=== PATIENT | female | born 1975 | race Caucasian/White ===

== ENCOUNTER 2016-09-18 01:02 | Emergency (ER) | payer MEDICAID ==
[2016-09-18 01:10] VITALS: RESP 16
[2016-09-18] MEDS ORDERED: NITROFURANTOIN MACROBID 100 MG CAP PO ONE (01:19)
[2016-09-18] MEDS ORDERED: PHENAZOPYRIDINE HCL 200 MG TAB ONE (01:19)
[2016-09-18] MEDS ORDERED: PHENAZOPYRIDINE HCL 200 MG TAB PO ONE (01:19)
[2016-09-18] MEDS ORDERED: IBUPROFEN 200 MG TAB PO ONE ×2 (01:22→01:26)
[2016-09-18] MEDS ORDERED: ACETAMINOPHEN 500 MG TAB ONE (01:22)
--- NOTE | 2016-09-18 01:23 | EDPHY ---
H & P Stated Complaint: c/o difficulty urinating earlier in [place], then bloody urine and burning Time Seen by Provider: 09/18/16 01:17 HPI/ROS: HPI The patient presents with urinary frequency, urgency, hesitancy which began at about 9:30 p.m. tonight fairly suddenly. She did notice a small amount of blood in her urine as well. She is having suprapubic pain. She has no prior history of urinary tract infection. She does not have any flank pain, vomiting , fevers or chills.. REVIEW OF SYSTEMS Constitutional: No fever, no chills. Eyes: No discharge. ENT: No sore throat. Cardiovascular: No chest pain, no palpitations. Respiratory: No cough, no shortness of breath. Gastrointestinal: No abdominal pain, no vomiting. Genitourinary: + hematuria. Musculoskeletal: No back pain. Skin: No rashes. Neurological: No headache. PMHx: Healthy Soc Hx: Housed PHYSICAL General Appearance: Alert, uncomfortable appearing, pacing in the room Eyes: Pupils equal and round no pallor or injection ENT, Mouth: Mucous membranes moist Respiratory: There are no retractions, lungs are clear to auscultation Cardiovascular: Regular rate and rhythm Gastrointestinal: Abdomen is soft and with mild epigastric tenderness Neurological: A&O, moves all extremities Skin: Warm and dry, no rashes Musculoskeletal: Neck is supple non tender Extremities: symmetrical, full range of motion Psychiatric: Patient is oriented X 3, there is no agitation Source: Patient Exam Limitations: No limitations - Medical/Surgical History Hx Asthma: No Hx Chronic Respiratory Disease: No Hx Diabetes: No Hx Cardiac Disease: No Hx Renal Disease: No Hx Cirrhosis: No Hx Alcoholism: No Hx HIV/AIDS: No Hx Splenectomy or Spleen Trauma: No Other PMH: OVARIAN CYST - Social History Smoking Status: Never smoked Constitutional: Initial Vital Signs Heart Rate 76 09/18/16 01:07 Respiratory Rate 16 09/18/16 01:07 Blood Pressure 95/69 L 09/18/16 01:07 O2 Sat (%) 96 09/18/16 01:07 O2 Delivery Mode Room Air Allergies/Adverse Reactions: No Known Allergies Allergy (Verified 09/18/16 01:10) Home Medications: Medication Instructions Recorded Ibuprofen 200 mg PO Q4 03/24/14 Zolpidem Tartrate [Ambien] 5 mg PO HS 03/24/14 Nitrofurantoin Monohyd/M-Cryst 100 mg PO BID #14 capsule 09/18/16 [Macrobid 100 mg Capsule] Phenazopyridine HCl [Pyridium] 200 mg PO TID #6 tab 09/18/16 Medical Decision Making ED Course/Re-evaluation: UA shows evidence of UTI. She is treated here with Pyridium and Macrobid. I will give her prescriptions for both of these. She will be discharged from the emergency room. Differential Diagnosis: This is a 41-year-old female who presents from home with suprapubic abdominal pain, irritative voiding symptoms and gross hematuria. Differential diagnosis includes cystitis, pyelonephritis, less likely renal colic. - Data Points Laboratory Results: 09/18/16 09/18/16 01:18 01:18 Urine Color RED Urine Appearance MODERATELY TURBID Urine pH 6.0 (5.0-7.5) Ur Specific [place] 1.006 (1.002-1.030) Urine Protein 2+ H (NEGATIVE) Urine Ketones NEGATIVE (NEGATIVE) Urine Blood 3+ H (NEGATIVE) Urine Nitrate NEGATIVE (NEGATIVE) Urine Bilirubin NEGATIVE (NEGATIVE) Urine Urobilinogen NEGATIVE EU EU (0.2-1.0) Ur Leukocyte Esterase 3+ H (NEGATIVE) Urine RBC 50-182 /hpf H /hpf (0-3) Urine WBC 50-182 /hpf H /hpf (0-3) Ur Epithelial Cells TRACE /lpf /lpf (NONE-1+) Urine Bacteria 3+ /hpf H /hpf (NONE SEEN) Urine Glucose NEGATIVE (NEGATIVE) Urine Test NEGATIVE Medications Given: Discontinued Medications Acetaminophen (Tylenol) 1,000 mg PO EDNOW ONE Stop: 09/18/16 01:27 Last Admin: 09/18/16 01:27 Dose: 1,000 mg Ibuprofen (Motrin) 400 mg PO EDNOW ONE Stop: 09/18/16 01:27 Last Admin: 09/18/16 01:28 Dose: 400 mg Nitrofurantoin Macrocrystals (Macrobid) 100 mg PO EDNOW ONE PRN Reason: Protocol Stop: 09/18/16 01:20 Last Admin: 09/18/16 01:27 Dose: 100 mg Phenazopyridine HCl (Pyridium) 200 mg PO EDNOW ONE Stop: 09/18/16 01:20 Last Admin: 09/18/16 01:27 Dose: 200 mg Departure - Departure Disposition: Home, Routine, Self-Care Clinical Impression: Urinary tract infection Qualifiers: Urinary tract infection type: acute cystitis Hematuria presence: with hematuria Qualified Code(s): N30.01 - Acute cystitis with hematuria Condition: Good Instructions: Urinary Tract Infection in Women (ED) Referrals: Marina Gresham MD [Primary Care Provider] - As per Instructions Prescriptions: Nitrofurantoin Monohyd/M-Cryst [Macrobid 100 mg Capsule] 100 mg PO BID #14 capsule Phenazopyridine HCl [Pyridium] 200 mg PO TID #6 tab
[2016-09-18] MEDS ORDERED: ACETAMINOPHEN 500 MG TAB PO ONE (01:26)
[2016-09-18 01:27] LABS: COLOR RED; LEUKOCYTE ESTERASE,URINE 3+ (NEGATIVE); NITRITE,URINE NEGATIVE (NEGATIVE)
[2016-09-18 01:32] LABS: BACTERIA 3+ /hpf (NONE SEEN); RBC,URINE 50-182 /hpf (0-3); WBC,URINE 50-182 /hpf (0-3)
[2016-09-18 01:48] VITALS: BP 113/62; PULSE 70; TEMP 98.1; O2SAT 95
== END 2016-09-18 01:48 | disposition home or self-care (01) ==
DX: N30.01 Acute cystitis with hematuria (principal); B96.20 Unspecified Escherichia coli [E. coli] as the cause of diseases classified elsewhere

== ENCOUNTER 2016-11-22 18:29 | Emergency (ER) | payer MEDICAID ==
[2016-11-22 18:38] VITALS: PULSE 80; O2SAT 97
--- NOTE | 2016-11-22 19:08 | EDPHY ---
H & P Stated Complaint: pain, urgency, frequency, and hematuria. Time Seen by Provider: 11/22/16 18:43 HPI/ROS: Chief Complaint: Pain with urination, hematuria HPI: 41-year-old female started having urinary urgency frequency and hematuria about 4 o'clock this afternoon. Patient has a history of urinary tract infection several months ago and this feels the same. No nausea or vomiting. Did start developing some chills tonight. Has some low pain but worse pain with urinating. No back pain. ROS: 10 point Review of Systems is negative except as noted in the HPI. PMH: None Medications: None Allergies: No known drug allergies Social History: No smoking, no alcohol, no recreational drug use Family History: non-contributory Physical Exam: Gen: Awake, Alert, No Distress HEENT: Nose: no rhinorrhea Eyes: PERRLA, EOMI Mouth: Moist mucosa Neck: Supple, no JVD Chest: nontender, lungs clear to auscultation Heart: S1, S2 normal, no murmur Abd: Soft, mild tenderness with palpation of the bladder, no guarding Back: no CVA tenderness, no midline tenderness Ext: no edema, non-tender Skin: no rash Neuro: CN II-XII intact, Sensation grossly intact, Strength 5/5 in bilateral upper and lower extremities - Personal History LMP (Females 10-55): 22-28 Days Ago Current Tetanus Diphtheria and Acellular Pertussis (TDAP): Yes - Medical/Surgical History Hx Asthma: No Hx Chronic Respiratory Disease: No Hx Diabetes: No Hx Cardiac Disease: No Hx Renal Disease: No Hx Cirrhosis: No Hx Alcoholism: No Hx HIV/AIDS: No Hx Splenectomy or Spleen Trauma: No Other PMH: OVARIAN CYST - Social History Smoking Status: Never smoked Constitutional: Initial Vital Signs Temperature (C) 36.7 C 11/22/16 18:35 Heart Rate 80 11/22/16 18:35 Respiratory Rate 16 11/22/16 18:35 Blood Pressure 144/82 H 11/22/16 18:35 O2 Sat (%) 97 11/22/16 18:35 O2 Delivery Mode Room Air Allergies/Adverse Reactions: No Known Allergies Allergy (Verified 09/18/16 01:10) Home Medications: Medication Instructions Recorded Ibuprofen 200 mg PO Q4 03/24/14 Zolpidem Tartrate [Ambien] 5 mg PO HS 03/24/14 Nitrofurantoin Monohyd/M-Cryst 100 mg PO BID #10 capsule 11/22/16 [Macrobid 100 mg Capsule] Phenazopyridine HCl [Pyridium] 200 mg PO TID #6 tab 11/22/16 Medical Decision Making ED Course/Re-evaluation: Urinalysis consistent with UTI. Will start on Macrobid. Patient to follow up with primary care physician about a week. - Data Points Laboratory Results: 11/22/16 11/22/16 18:40 18:40 Urine Color RED Urine Appearance MODERATELY TURBID Urine pH 7.0 (5.0-7.5) Ur Specific [place] 1.015 (1.002-1.030) Urine Protein 2+ H (NEGATIVE) Urine Ketones NEGATIVE (NEGATIVE) Urine Blood 3+ H (NEGATIVE) Urine Nitrate NEGATIVE (NEGATIVE) Urine Bilirubin NEGATIVE (NEGATIVE) Urine Urobilinogen NEGATIVE EU EU (0.2-1.0) Ur Leukocyte Esterase 3+ H (NEGATIVE) Urine RBC 50-182 /hpf H /hpf (0-3) Urine WBC 50-182 /hpf H /hpf (0-3) Ur Epithelial Cells TRACE /lpf /lpf (NONE-1+) Urine Glucose NEGATIVE (NEGATIVE) Urine Test NEGATIVE Departure - Departure Disposition: Home, Routine, Self-Care Clinical Impression: Urinary tract infection Condition: Good Instructions: Urinary Tract Infection in Women (ED) Additional Instructions: Please take your full course of antibiotics. Follow up with primary care physician in 5-7 days if symptoms are not improving. Return to the emergency depart for increasing pain, fevers, chills, nausea, vomiting, or any other concerns. Referrals: Marina Gresham MD [Primary Care Provider] - As per Instructions Prescriptions: Nitrofurantoin Monohyd/M-Cryst [Macrobid 100 mg Capsule] 100 mg PO BID #10 capsule Phenazopyridine HCl [Pyridium] 200 mg PO TID #6 tab
[2016-11-22 19:12] LABS: COLOR RED; LEUKOCYTE ESTERASE,URINE 3+ (NEGATIVE); NITRITE,URINE NEGATIVE (NEGATIVE)
[2016-11-22 19:15] LABS: RBC,URINE 50-182 /hpf (0-3); WBC,URINE 50-182 /hpf (0-3)
[2016-11-22] MEDS ORDERED: PHENAZOPYRIDINE HCL 200 MG TAB PO ONE (20:03)
[2016-11-22] MEDS ORDERED: NITROFURANTOIN 100MG PREPACK#2 BTL TAKEHOME ONE (20:03)
[2016-11-22 20:36] VITALS: BP 142/81; RESP 14; TEMP 97.9
== END 2016-11-22 20:37 | disposition home or self-care (01) ==
DX: N39.0 Urinary tract infection, site not specified (principal)

== ENCOUNTER 2018-09-02 18:35 | Emergency (ER) | payer SELFPAY ==
[2018-09-02] MEDS ORDERED: NS 1,000 ML IV ONE (18:58)
--- NOTE | 2018-09-02 19:06 | EDPHY ---
H & P Stated Complaint: RLQ ABD PAIN SEEN AT FRIDAY/TX FOR UTI HX OF R OVARIAN CYST Time Seen by Provider: 09/02/18 18:55 HPI/ROS: CHIEF COMPLAINT: Right lower quadrant abdominal pain x3 days HISTORY OF PRESENT ILLNESS: 43-year-old female complaining of right lower quadrant abdominal pain for 3 days. She believes it is secondary to an ovarian cyst. Denies nausea or vomiting. Denies back or flank pain. Denies abnormal vaginal bleeding or discharge. No history of abdominal surgery. Last oral intake 4:00 p.m. Today consisting of soup. REVIEW OF SYSTEMS: 10 systems reviewed and negative with the exception of the elements mentioned in the history of present illness PAST MEDICAL & SURGICAL HISTORY: History of ovarian cyst SOCIAL HISTORY:Nonsmoker PHYSICAL EXAM (Prior to examination, patient consented to physical exam, hands were washed and my usual and customary physical exam procedures followed) 1) GENERAL: Well-developed, well-nourished, alert and oriented. Crying, appears uncomfortable 2) HEAD: Normocephalic, atraumatic 3) HEENT: Pupils equal, round, reactive to light bilaterally. Sclera anicteric. 4) NECK: Full range of motion, no meningeal signs. 5) LUNGS: Clear auscultation bilaterally, no wheezes, no rhonchi, no retractions. 6) HEART: Regular rate and rhythm, no murmur, no heave, no gallop. 7) ABDOMEN: Guarding right lower quadrant, tender to palpation right lower quadrant. Negative Croft's, negative Rovsing's, negative peritoneal sign, 8) MUSCULOSKELETAL: Moving all extremities, no focal areas of tenderness, no obvious trauma. No peripheral edema or discoloration. 9) BACK: No CVA tenderness, no midline vertebral tenderness, no fluctuance, no step-off, no obvious trauma, no visual or palpable abnormality. 10) SKIN: No rash, no petechiae. 11) Psychiatric: Patient is oriented X 3, there is no agitation. DIFFERENTIAL DIAGNOSIS: My differential diagnosis includes, but is not limited to, acute appendicitis, acute cholecystitis, bowel obstruction, acute pancreatitis, ovarian torsion, ectopic , gastritis and urinary tract infection. The patient understands that this diagnosis is provisional and can never be 100% accurate. This is a partial list of diagnoses considered. These considerations are based on history, physical exam, past history and reassessment. - Personal History LMP (Females 10-55): Now Current Tetanus Diphtheria and Acellular Pertussis (TDAP): Unsure - Medical/Surgical History Hx Asthma: No Hx Chronic Respiratory Disease: No Hx Diabetes: No Hx Cardiac Disease: No Hx Renal Disease: No Hx Cirrhosis: No Hx Alcoholism: No Hx HIV/AIDS: No Hx Splenectomy or Spleen Trauma: No Other PMH: OVARIAN CYST - Social History Smoking Status: Never smoked Constitutional: Initial Vital Signs Temperature (C) 36.9 C 09/02/18 18:46 Heart Rate 77 09/02/18 18:46 Respiratory Rate 17 09/02/18 18:46 Blood Pressure 160/94 H 09/02/18 18:46 O2 Sat (%) 99 09/02/18 18:46 O2 Delivery Mode Room Air Allergies/Adverse Reactions: No Known Allergies Allergy (Verified 09/02/18 18:45) Home Medications: Medication Instructions Recorded Ibuprofen 200 mg PO Q4 03/24/14 Zolpidem Tartrate [Ambien] 5 mg PO HS 03/24/14 Nitrofurantoin Monohyd/M-Cryst 100 mg PO BID #10 capsule 11/22/16 [Macrobid 100 mg Capsule] Phenazopyridine HCl [Pyridium] 200 mg PO TID #6 tab 11/22/16 Docusate Sodium [Colace] 100 mg PO BID #6 cap 09/02/18 Medical Decision Making - Diagnostics Imaging Results: Imaging Impressions Abdomen Ultrasound 09/02/18 19:04 Impression: No indirect sonographic evidence for appendicitis. The study is less than optimal due to the patient's body habitus. Results called to MILTON New at 20:20 p.m. Pelvic/Renal Ultrasound 09/02/18 19:04 Impression: 1. Possible adenomyosis. 2. Normal ovaries without cyst formation. Results called to MILTON New at 20:[address] 09/02/18 20:22 Impression: 1.Normal appendix. 2. Prominent fecal material in the proximal half of the colon. Results discussed with MILTON New at 9:45 PM. General information for patients regarding this examination can be found at [email or web address]. If you have questions or comments about this report, please contact me at (hospital) or [phone] (cell). Images reviewed myself ED Course/Re-evaluation: 8:20 p.m.: Ultrasound interpreted by staff radiologist shows normal appearing ovaries, nonvisualized appendix. Recommended CT imaging due to her continued focal right lower quadrant pain. 9:50 p.m.: Re-evaluation. Discussed with patient her imaging results showing normal appearing appendix. She is noted to have prominent fecal material which may be contributing to her pain. At this time doubt acute surgical abdominal pathology. I re-examined her and she is asymptomatic, she has no complaints of abdominal pain, I am unable to elicit abdominal pain on exam. She feels comfortable being discharged. Patient feels comfortable being discharged. All questions and concerns addressed by myself. Patient given my usual and customary discharge precautions and instructions regarding their clinical impression. Care of patient under supervision of secondary supervising physician Dr Amaral with whom I discussed case. - Data Points Laboratory Results: Laboratory Results 09/02/18 18:00 09/02/18 18:00 09/02/18 09/02/18 09/02/18 18:00 18:00 18:00 WBC RBC Hgb Hct MCV MCH MCHC RDW Plt Count MPV Neut % (Auto) Lymph % (Auto) [place] % (Auto) Eos % (Auto) Baso % (Auto) Nucleat RBC Rel Count Absolute Neuts (auto) Absolute Lymphs (auto) Absolute Monos (auto) Absolute Eos (auto) Absolute Basos (auto) Absolute Nucleated RBC Immature Gran % Immature Gran # Sodium 136 mEq/L mEq/L (135-145) Potassium 4.7 mEq/L mEq/L (3.5-5.2) Chloride 107 mEq/L mEq/L (97-110) Carbon Dioxide 21 mEq/l L mEq/l (22-31) Anion Gap 8 mEq/L mEq/L (6-14) BUN 13 mg/dL mg/dL (7-23) Creatinine 0.7 mg/dL mg/dL (0.6-1.0) Estimated GFR > 60 Glucose 97 mg/dL mg/dL (70-100) Calcium 8.7 mg/dL mg/dL (8.5-10.4) Total Bilirubin 0.4 mg/dL mg/dL (0.1-1.4) Conjugated Bilirubin 0.3 mg/dL mg/dL (0.0-0.5) Unconjugated Bilirubin 0.1 mg/dL mg/dL (0.0-1.1) AST 32 IU/L IU/L (14-46) ALT 19 IU/L IU/L (9-52) Alkaline Phosphatase 79 IU/L IU/L (38-126) Total Protein 7.3 g/dL g/dL (6.3-8.2) Albumin 4.0 g/dL g/dL (3.5-5.0) Lipase 118 IU/L IU/L (23-300) Beta HCG, Qual NEGATIVE Urine Color YELLOW Urine Appearance HAZY Urine pH 6.0 (5.0-7.5) Ur Specific [place] 1.013 (1.002-1.030) Urine Protein 1+ H (NEGATIVE) Urine Ketones NEGATIVE (NEGATIVE) Urine Blood 3+ H (NEGATIVE) Urine Nitrate NEGATIVE (NEGATIVE) Urine Bilirubin NEGATIVE (NEGATIVE) Urine Urobilinogen NEGATIVE EU EU (0.2-1.0) Ur Leukocyte Esterase TRACE H (NEGATIVE) Urine RBC 50-182 /hpf H /hpf (0-3) Urine WBC 1-3 /hpf /hpf (0-3) Ur Epithelial Cells TRACE /lpf /lpf (NONE-1+) Urine Mucus TRACE /lpf /lpf (NONE-1+) Urine Glucose NEGATIVE (NEGATIVE) 09/02/18 18:00 WBC 10.73 10^3/uL H 10^3/uL (3.80-9.50) RBC 4.99 10^6/uL 10^6/uL (4.18-5.33) Hgb 13.8 g/dL g/dL (12.6-16.3) Hct 41.4 % % (38.0-47.0) MCV 83.0 fL fL (81.5-99.8) MCH 27.7 pg L pg (27.9-34.1) MCHC 33.3 g/dL g/dL (32.4-36.7) RDW 13.6 % % (11.5-15.2) Plt Count 350 10^3/uL 10^3/uL (150-400) MPV 10.2 fL fL (8.7-11.7) Neut % (Auto) 62.4 % % (39.3-74.2) Lymph % (Auto) 27.6 % % (15.0-45.0) [place] % (Auto) 5.9 % % (4.5-13.0) Eos % (Auto) 3.1 % % (0.6-7.6) Baso % (Auto) 0.7 % % (0.3-1.7) Nucleat RBC Rel Count 0.0 % % (0.0-0.2) Absolute Neuts (auto) 6.71 10^3/uL H 10^3/uL (1.70-6.50) Absolute Lymphs (auto) 2.96 10^3/uL 10^3/uL (1.00-3.00) Absolute Monos (auto) 0.63 10^3/uL 10^3/uL (0.30-0.80) Absolute Eos (auto) 0.33 10^3/uL 10^3/uL (0.03-0.40) Absolute Basos (auto) 0.07 10^3/uL 10^3/uL (0.02-0.10) Absolute Nucleated RBC 0.00 10^3/uL 10^3/uL (0-0.01) Immature Gran % 0.3 % % (0.0-1.1) Immature Gran # 0.03 10^3/uL 10^3/uL (0.00-0.10) Sodium Potassium Chloride Carbon Dioxide Anion Gap BUN Creatinine Estimated GFR Glucose Calcium Total Bilirubin Conjugated Bilirubin Unconjugated Bilirubin AST ALT Alkaline Phosphatase Total Protein Albumin Lipase Beta HCG, Qual Urine Color Urine Appearance Urine pH Ur Specific [place] Urine Protein Urine Ketones Urine Blood Urine Nitrate Urine Bilirubin Urine Urobilinogen Ur Leukocyte Esterase Urine RBC Urine WBC Ur Epithelial Cells Urine Mucus Urine Glucose Medications Given: Discontinued Medications Sodium Chloride (Ns) 1,000 mls @ 0 mls/hr IV EDNOW ONE; Wide Open PRN Reason: Protocol Stop: 09/02/18 18:59 Last Admin: 09/02/18 19:15 Dose: 1,000 mls Morphine Sulfate (Morphine) 4 mg IVP EDNOW ONE Stop: 09/02/18 19:07 Last Admin: 09/02/18 19:16 Dose: 4 mg Ondansetron HCl (Zofran) 4 mg IVP EDNOW ONE Stop: 09/02/18 20:34 Last Admin: 09/02/18 20:34 Dose: 4 mg Departure - Departure Disposition: Home, Routine, Self-Care Clinical Impression: Abdominal pain Qualifiers: Abdominal location: right lower quadrant Qualified Code(s): R10.31 - Right lower quadrant pain Constipation Qualifiers: Constipation type: other constipation type Qualified Code(s): K59.09 - Other constipation Condition: Good Instructions: Constipation (ED), Acute Abdominal Pain (ED) Additional Instructions: Seek immediate medical attention if you develop new or worsening symptoms, if you develop fevers, chills, inability to tolerate oral intake or any other symptoms that concerns you. Referrals: Marina Gresham MD [Primary Care Provider] - As per Instructions Prescriptions: Docusate Sodium [Colace] 100 mg PO BID #6 cap
[2018-09-02 19:34] LABS: PLATELET COUNT 350 10^3/uL (150-400)
[2018-09-02] MEDS ORDERED: ONDANSETRON 4 MG/2 ML VIAL ONE (20:31)
[2018-09-02] MEDS ORDERED: ONDANSETRON 4 MG/2 ML VIAL IVP ONE (20:33)
[2018-09-02] MEDS ORDERED: IOPAMIDOL (ISOVUE-300) 100 ML BTL ONE (20:53)
[2018-09-02 22:07] VITALS: BP 106/65
== END 2018-09-02 22:07 | disposition home or self-care (01) ==
DX: R10.31 Right lower quadrant pain (principal); K59.09 Other constipation; E86.9 Volume depletion, unspecified
CPT/HCPCS: 96374; J2270; J2405; Q9967